=== PATIENT | male | born 1990 | race Caucasian/White ===

== ENCOUNTER 2020-12-30 15:14 | Emergency (ER) | payer OTHER ==
[2020-12-30] MEDS ORDERED: CEPHALEXIN500 M1 PO (16:37)
[2020-12-30] MEDS ORDERED: BACTROBAN OINT22 GM EXT (16:37)
== END 2020-12-30 16:44 | disposition home or self-care (01) ==
LOC: ER1 15:14
DX: S61.217A Laceration without foreign body of left little finger without damage to nail, initial encounter (principal); F17.200 Nicotine dependence, unspecified, uncomplicated; W26.0XXA Contact with knife, initial encounter; Y92.89 Other specified places as the place of occurrence of the external cause; Y99.0 Civilian activity done for income or pay
CPT/HCPCS: 12001; 99283